=== PATIENT | male | born 2000 | race Caucasian/White ===

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

== ENCOUNTER → 2019-01-22 | Outpatient (REF) | payer BC ==
[~2019-01-22] MED LIST changes: +NITR-67 PO
[2019-01-22 17:00] LABS: APPEARANCE, URINE CLOUDY (CLEAR); BACTERIA, URINE AUTO 1+ (NEGATIVE); BILIRUBIN, URINE AUTO NEGATIVE (NEGATIVE); BLOOD, URINE BLOOD NEGATIVE (NEGATIVE); COLOR, URINE YELLOW (YELLOW); GLUCOSE, URINE (UA) AUTO NEGATIVE (NEGATIVE); KETONE, URINE AUTO NEGATIVE (NEGATIVE); LEUKOCYTE ESTERASE, URINE AUTO 3+ (NEGATIVE); NITRITE, URINE AUTO NEGATIVE (NEGATIVE); PROTEIN, URINE AUTO 2+ mg/dL (NEGATIVE); RBC, URINE AUTO 4 /HPF (0-3); SPECIFIC GRAVITY URINE AUTO 1.019 (1.002-1.035); SQUAMOUS EPITHELIAL CELL UR AU 0 /HPF (0-6); TRANSITIONAL EPITHELIAL AUTO <1 /HPF; UROBILINOGEN, URINE AUTO 0.2 mg/dL (0.0-2.0); WBC, URINE AUTO 171 /HPF (0-3)
== END ==
LOC: M LAB REF 15:36
PROVIDERS: ATTEND Pediatrics
DX: R30.0 Dysuria (principal)

== ENCOUNTER → 2022-07-29 | Outpatient (CLI) | payer MEDICAID ==
[~2022-07-29] MED LIST changes: -DULE100A INH; +MOME13HF8 INH; -SULF1TAB72 PO; +SULF400T14 PO
== END ==
LOC: M RAD 14:58
PROVIDERS: ATTEND Student in an Organized Health Care Education/Training Program
DX: N31.9 Neuromuscular dysfunction of bladder, unspecified (principal); Q53 Undescended and ectopic testicle

== ENCOUNTER 2023-03-22 13:37 | Inpatient (IN) | payer MEDICAID ==
[~2023-03-22] VITALS: Ht 160 cm; Wt 50.3 kg
[2023-03-22] MEDS ORDERED: NS 1,000 ML IV ONE (15:10)
[2023-03-22] MEDS ORDERED: PIPERACILLIN/TAZOBACTAM SOD 4.5 GM in D5W MINI-BAG PLUS 50 ML IV ONE (15:45)
[2023-03-22] MEDS ORDERED: IBUPROFEN 600MG TAB PO ONE (15:45)
[2023-03-22 15:57] LABS: HEMATOCRIT 38.8 % (42.0-52.0); HEMOGLOBIN 13.4 g/dl (13.5-17.5); MEAN CORPUSCULAR HEMOGLOBIN 29.5 pg (27.0-33.0); MEAN CORPUSCULAR HGB CONC 34.5 g/dl (32.0-36.5); MEAN CORPUSCULAR VOLUME 85.5 fl (80.0-96.0); PLATELET COUNT, AUTOMATED 285 10^3/uL (150-450); RED BLOOD COUNT 4.54 10^6/uL (4.30-6.10)
[2023-03-22 16:13] LABS: ATYPICAL LYMPH 31 % (0-5); BASOPHILS 2 % (0-1); LYMPHOCYTES 12 % (16-44); MONOCYTES 4 % (0-5); NEUTROPHILS 47 % (28-66); PLATELET ESTIMATE NORMAL (NORMAL)
[2023-03-22 16:19] LABS: ALBUMIN 3.4 G/DL (3.2-5.2); BILIRUBIN,DIRECT 0.4 MG/DL (<0.4); CALCIUM LEVEL 8.1 MG/DL (8.5-10.1); CREATININE FOR GFR 1.91 MG/DL (0.70-1.30); GLOMERULAR FILTRATION RATE 46.7 (>60); POTASSIUM SERUM 3.6 MMOL/L (3.5-5.1)
[2023-03-22] MEDS ORDERED: ACETAMINOPHEN TAB 650MG DOSE (2X325MG) PO ONE (16:40)
[2023-03-22] MEDS ORDERED: MED REC IN PROGRESS XX SCH (18:10)
[2023-03-22] MEDS ORDERED: VENTAER INH (20:00)
[2023-03-22] MEDS ORDERED: HOME MED LIST COMPLETE! XX SCH (20:05)
[2023-03-22 21:00] VITALS: TEMP 98.5
[2023-03-22 21:05] VITALS: BP 106/66; TEMP 98.3; O2SAT 98
[2023-03-22] MEDS: NS 1,000 ML IV SCH (21:52)
[2023-03-22] MEDS: PIPERACILLIN/TAZOBACTAM SOD 3.375 GM in D5W MINI-BAG PLUS 50 ML IV SCH (21:52)
[2023-03-22] MEDS: ACETAMINOPHEN TAB 650MG DOSE (2X325MG) PO PRN (21:53)
[2023-03-22] MEDS ORDERED: ALBUTEROL SULFATE 2.5MG/0.5ML INH NEB SOLN NEB PRN (21:55)
[2023-03-22] MEDS ORDERED: ONDANSETRON 4MG 2ML VIAL IV PRN (22:15)
[2023-03-22] MEDS: SYMBICORT 160/4.5MCG INHALER 6GM INH SCH (22:26)
[2023-03-22 22:44] LABS: C REACTIVE PROTEIN QUANTITATIV 11.3 MG/DL (<1.0)
[2023-03-22 22:57] LABS: PROCALCITONIN 5.61 ng/ml
[2023-03-22] MEDS ORDERED: METOCLOPRAMIDE INJ 10MG/2ML VIAL IV PRN (23:00)
[2023-03-23] VITALS (9 sets, daily range): BP systolic 98–111; BP diastolic 56–65; TEMP 97–102.8; O2SAT 95–97
[2023-03-23] MEDS: ACETAMINOPHEN TAB 650MG DOSE (2X325MG) PO PRN ×2 (03:33→16:40)
[2023-03-23] MEDS: PIPERACILLIN/TAZOBACTAM SOD 3.375 GM in D5W MINI-BAG PLUS 50 ML IV SCH ×4 (03:34→22:27)
[2023-03-23 07:55] LABS: HEMATOCRIT 34.4 % (42.0-52.0); MEAN CORPUSCULAR HEMOGLOBIN 29.7 pg (27.0-33.0); MEAN CORPUSCULAR HGB CONC 34.9 g/dl (32.0-36.5); MEAN CORPUSCULAR VOLUME 85.1 fl (80.0-96.0); PLATELET COUNT, AUTOMATED 255 10^3/uL (150-450); RED BLOOD COUNT 4.04 10^6/uL (4.30-6.10); WHITE BLOOD COUNT 9.7 10^3/uL (4.0-10.0)
[2023-03-23] MEDS: SYMBICORT 160/4.5MCG INHALER 6GM INH SCH ×2 (08:29→20:12)
[2023-03-23 08:33] LABS: ALBUMIN 2.9 G/DL (3.2-5.2); BILIRUBIN,TOTAL 1.1 MG/DL (0.3-1.2); CALCIUM LEVEL 7.4 MG/DL (8.5-10.1); CREATININE FOR GFR 2.06 MG/DL (0.70-1.30); GLOMERULAR FILTRATION RATE 42.8 (>60); POTASSIUM SERUM 3.5 MMOL/L (3.5-5.1); TOTAL PROTEIN 6.2 G/DL (5.7-8.2)
[2023-03-23 08:46] LABS: ATYPICAL LYMPH 41 % (0-5); LYMPHOCYTES 1 % (16-44); MONOCYTES 10 % (0-5); NEUTROPHILS 48 % (28-66); PLATELET ESTIMATE NORMAL (NORMAL)
[2023-03-23] MEDS: NS 1,000 ML IV SCH ×2 (10:36→20:02)
[2023-03-23] MEDS ORDERED: VANCOMYCIN HCL 1,000 MG, VIAL MATE ADAPTER 1 EACH in D5W 250 ML IV ONE (11:00)
[2023-03-23] MEDS ORDERED: VANCOMYCIN HCL 750 MG, VIAL MATE ADAPTER 1 EACH in D5W 250 ML IV SCH (20:00)
[2023-03-24] VITALS (9 sets, daily range): BP systolic 103–114; BP diastolic 54–60; TEMP 97.6–101.9; O2SAT 95–99
[2023-03-24] MEDS: NS 1,000 ML IV SCH ×2 (02:20→13:01)
[2023-03-24] MEDS: PIPERACILLIN/TAZOBACTAM SOD 3.375 GM in D5W MINI-BAG PLUS 50 ML IV SCH ×2 (04:07→09:38)
[2023-03-24] MEDS: ACETAMINOPHEN TAB 650MG DOSE (2X325MG) PO PRN (04:10)
[2023-03-24 06:13] LABS: HEMATOCRIT 30.7 % (42.0-52.0); HEMOGLOBIN 10.7 g/dl (13.5-17.5); MEAN CORPUSCULAR HEMOGLOBIN 29.9 pg (27.0-33.0); MEAN CORPUSCULAR HGB CONC 34.9 g/dl (32.0-36.5); MEAN CORPUSCULAR VOLUME 85.8 fl (80.0-96.0); PLATELET COUNT, AUTOMATED 245 10^3/uL (150-450); RED BLOOD COUNT 3.58 10^6/uL (4.30-6.10); WHITE BLOOD COUNT 9.6 10^3/uL (4.0-10.0)
[2023-03-24 06:39] LABS: CALCIUM LEVEL 7.7 MG/DL (8.5-10.1); CREATININE FOR GFR 1.73 MG/DL (0.70-1.30); GLOMERULAR FILTRATION RATE 52.4 (>60); POTASSIUM SERUM 3.4 MMOL/L (3.5-5.1)
[2023-03-24 07:05] LABS: ANISOCYTOSIS 1+; ATYPICAL LYMPH 42 % (0-5); BURR CELLS 1+; LYMPHOCYTES 22 % (16-44); MONOCYTES 7 % (0-5); NEUTROPHILS 29 % (28-66); PLATELET ESTIMATE NORMAL (NORMAL); POIKILOCYTOSIS 1+
[2023-03-24 07:06] LABS: POLYCHROMASIA 1+
[2023-03-24] MEDS ORDERED: POTASSIUM CHLORIDE 10MEQ SR TABLET PO ONE (08:00)
[2023-03-24] MEDS: SYMBICORT 160/4.5MCG INHALER 6GM INH SCH ×2 (08:16→20:43)
[2023-03-24] MEDS ORDERED: VANCOMYCIN HCL 1,000 MG, VIAL MATE ADAPTER 1 EACH in D5W 250 ML IV SCH (12:00)
[2023-03-24 13:22] LABS: C REACTIVE PROTEIN QUANTITATIV 9.3 MG/DL (<1.0)
[2023-03-24] MEDS: cefTRIAXone SOD 2 GM in D5W MINI-BAG PLUS 50 ML IV SCH (17:05)
[2023-03-24] MEDS ORDERED: ACETAMINOPHEN 500 MG TAB PO ONE (17:30)
[2023-03-24] MEDS ORDERED: RAMELTEON 8 MG TAB (ROZEREM) PO ONE (20:15)
[2023-03-25] VITALS (7 sets, daily range): BP systolic 97–119; BP diastolic 57–72; TEMP 97.9–101.4; O2SAT 97–98
[2023-03-25] MEDS: NS 1,000 ML IV SCH (04:46)
[2023-03-25 05:25] LABS: HEMATOCRIT 31.8 % (42.0-52.0); HEMOGLOBIN 10.7 g/dl (13.5-17.5); MEAN CORPUSCULAR HEMOGLOBIN 29.5 pg (27.0-33.0); MEAN CORPUSCULAR HGB CONC 33.6 g/dl (32.0-36.5); MEAN CORPUSCULAR VOLUME 87.6 fl (80.0-96.0); PLATELET COUNT, AUTOMATED 264 10^3/uL (150-450); RED BLOOD COUNT 3.63 10^6/uL (4.30-6.10); WHITE BLOOD COUNT 9.4 10^3/uL (4.0-10.0)
[2023-03-25 05:47] LABS: BLOOD UREA NITROGEN 8 MG/DL (9-23); CALCIUM LEVEL 7.6 MG/DL (8.5-10.1); CARBON DIOXIDE LEVEL 21 MMOL/L (20-31); CHLORIDE LEVEL 113 MMOL/L (98-107); CREATININE FOR GFR 1.37 MG/DL (0.70-1.30); GLOMERULAR FILTRATION RATE > 60.0 (>60); GLUCOSE, FASTING 88 MG/DL (60-100); SODIUM LEVEL 141 MMOL/L (136-145)
[2023-03-25 05:51] LABS: ATYPICAL LYMPH 28 % (0-5); EOSINOPHILS 1 % (0-3); LYMPHOCYTES 34 % (16-44); MONOCYTES 6 % (0-5); NEUTROPHILS 31 % (28-66)
[2023-03-25 05:52] LABS: PLATELET ESTIMATE NORMAL (NORMAL); POIKILOCYTOSIS 1+
[2023-03-25 05:59] LABS: PROCALCITONIN 1.73 ng/ml
[2023-03-25] MEDS ORDERED: RAMELTEON 8 MG TAB (ROZEREM) PO PRN (07:30)
[2023-03-25] MEDS: SYMBICORT 160/4.5MCG INHALER 6GM INH SCH ×2 (08:48→20:26)
[2023-03-25] MEDS: cefTRIAXone SOD 2 GM in D5W MINI-BAG PLUS 50 ML IV SCH (16:30)
[2023-03-25] MEDS ORDERED: ACETAMINOPHEN TAB 650MG DOSE (2X325MG) PO ONE (18:50)
[2023-03-26] VITALS (8 sets, daily range): BP systolic 102–119; BP diastolic 56–69; TEMP 98.3–101; O2SAT 98
[2023-03-26] MEDS ORDERED: ACETAMINOPHEN TAB 650MG DOSE (2X325MG) PO ONE (06:00)
[2023-03-26 06:22] LABS: HEMOGLOBIN 11.1 g/dl (13.5-17.5); MEAN CORPUSCULAR HEMOGLOBIN 29.7 pg (27.0-33.0); MEAN CORPUSCULAR HGB CONC 33.6 g/dl (32.0-36.5); MEAN CORPUSCULAR VOLUME 88.2 fl (80.0-96.0); PLATELET COUNT, AUTOMATED 321 10^3/uL (150-450); RED BLOOD COUNT 3.74 10^6/uL (4.30-6.10); WHITE BLOOD COUNT 8.9 10^3/uL (4.0-10.0)
[2023-03-26 06:44] LABS: BLOOD UREA NITROGEN 8 MG/DL (9-23); CARBON DIOXIDE LEVEL 22 MMOL/L (20-31); CHLORIDE LEVEL 112 MMOL/L (98-107); CREATININE FOR GFR 1.32 MG/DL (0.70-1.30); GLOMERULAR FILTRATION RATE > 60.0 (>60); GLUCOSE, FASTING 88 MG/DL (60-100); SODIUM LEVEL 144 MMOL/L (136-145)
[2023-03-26 07:37] LABS: ATYPICAL LYMPH 59 % (0-5); EOSINOPHILS 1 % (0-3); LYMPHOCYTES 3 % (16-44); MONOCYTES 9 % (0-5); NEUTROPHILS 28 % (28-66); PLATELET ESTIMATE NORMAL (NORMAL)
[2023-03-26] MEDS: SYMBICORT 160/4.5MCG INHALER 6GM INH SCH ×2 (09:04→21:04)
[2023-03-26] MEDS: cefTRIAXone SOD 2 GM in D5W MINI-BAG PLUS 50 ML IV SCH (16:04)
[2023-03-27 06:00] VITALS: BP 117/68; TEMP 97.3; O2SAT 95
[2023-03-27 06:50] LABS: HEMATOCRIT 34.5 % (42.0-52.0); HEMOGLOBIN 11.7 g/dl (13.5-17.5); MEAN CORPUSCULAR HEMOGLOBIN 29.9 pg (27.0-33.0); MEAN CORPUSCULAR HGB CONC 33.9 g/dl (32.0-36.5); MEAN CORPUSCULAR VOLUME 88.2 fl (80.0-96.0); PLATELET COUNT, AUTOMATED 337 10^3/uL (150-450); RED BLOOD COUNT 3.91 10^6/uL (4.30-6.10); WHITE BLOOD COUNT 6.9 10^3/uL (4.0-10.0)
[2023-03-27 07:20] LABS: BLOOD UREA NITROGEN 8 MG/DL (9-23); CALCIUM LEVEL 8.2 MG/DL (8.5-10.1); CARBON DIOXIDE LEVEL 23 MMOL/L (20-31); CHLORIDE LEVEL 110 MMOL/L (98-107); CREATININE FOR GFR 1.28 MG/DL (0.70-1.30); GLOMERULAR FILTRATION RATE > 60.0 (>60); GLUCOSE, FASTING 87 MG/DL (60-100); POTASSIUM SERUM 4.2 MMOL/L (3.5-5.1); SODIUM LEVEL 141 MMOL/L (136-145)
[2023-03-27 07:30] LABS: PROCALCITONIN 0.48 ng/ml
[2023-03-27 08:03] LABS: ATYPICAL LYMPH 53 % (0-5); EOSINOPHILS 1 % (0-3); LYMPHOCYTES 17 % (16-44); MONOCYTES 5 % (0-5); NEUTROPHILS 24 % (28-66); PLATELET ESTIMATE NORMAL (NORMAL)
[2023-03-27] MEDS: SYMBICORT 160/4.5MCG INHALER 6GM INH SCH ×2 (08:42→20:47)
[2023-03-27 14:00] VITALS: BP 112/63; TEMP 98.4; O2SAT 96
[2023-03-27] MEDS: cefTRIAXone SOD 2 GM in D5W MINI-BAG PLUS 50 ML IV SCH (17:09)
[2023-03-27 19:40] VITALS: BP 112/63; TEMP 98.6; O2SAT 97
[2023-03-28 05:30] VITALS: BP 113/64; TEMP 97.9; O2SAT 98
[2023-03-28 06:18] LABS: HEMATOCRIT 35.2 % (42.0-52.0); HEMOGLOBIN 11.5 g/dl (13.5-17.5); MEAN CORPUSCULAR HEMOGLOBIN 29.3 pg (27.0-33.0); MEAN CORPUSCULAR HGB CONC 32.7 g/dl (32.0-36.5); MEAN CORPUSCULAR VOLUME 89.8 fl (80.0-96.0); PLATELET COUNT, AUTOMATED 348 10^3/uL (150-450); RED BLOOD COUNT 3.92 10^6/uL (4.30-6.10); WHITE BLOOD COUNT 7.4 10^3/uL (4.0-10.0)
[2023-03-28 07:00] LABS: BLOOD UREA NITROGEN 8 MG/DL (9-23); CALCIUM LEVEL 8.6 MG/DL (8.5-10.1); CARBON DIOXIDE LEVEL 24 MMOL/L (20-31); CHLORIDE LEVEL 110 MMOL/L (98-107); CREATININE FOR GFR 1.29 MG/DL (0.70-1.30); GLOMERULAR FILTRATION RATE > 60.0 (>60); GLUCOSE, FASTING 85 MG/DL (60-100); POTASSIUM SERUM 4.7 MMOL/L (3.5-5.1); SODIUM LEVEL 142 MMOL/L (136-145)
[2023-03-28 07:23] LABS: ATYPICAL LYMPH 49 % (0-5); EOSINOPHILS 3 % (0-3); LYMPHOCYTES 19 % (16-44); METAMYELOCYTES 1 % (0-0); MONOCYTES 3 % (0-5); NEUTROPHILS 25 % (28-66); PLATELET ESTIMATE NORMAL (NORMAL)
[2023-03-28] MEDS: SYMBICORT 160/4.5MCG INHALER 6GM INH SCH (08:47)
[2023-03-28] MEDS ORDERED: cefTRIAXone SOD 2 GM in D5W MINI-BAG PLUS 50 ML IV SCH (13:00)
== END 2023-03-28 13:40 | disposition home or self-care (01) | DRG 720 ==
LOC: M ED 13:37 → M ED INP 18:02 → M PCU 21:02 → M MS5PR 03-25 09:57
PROVIDERS: ADMIT Internal Medicine Nephrology; ATTEND Internal Medicine Nephrology
DX: A41.9 Sepsis, unspecified organism (principal); Q79.4 Prune belly syndrome; A04.8 Other specified bacterial intestinal infections; N17.9 Acute kidney failure, unspecified; N13.30 Unspecified hydronephrosis; R16.1 Splenomegaly, not elsewhere classified; N18.30 Chronic kidney disease, stage 3 unspecified; E86.0 Dehydration; N39.0 Urinary tract infection, site not specified; R26.89 Other abnormalities of gait and mobility; J45.909 Unspecified asthma, uncomplicated; F70 Mild intellectual disabilities; L20.9 Atopic dermatitis, unspecified; Q67.6 Pectus excavatum; Z91.040 Latex allergy status; Z88.8 Allergy status to other drugs, medicaments and biological substances

== ENCOUNTER 2024-08-25 12:12 | Emergency (ER) | payer MEDICAID ==
[~2024-08-25] VITALS: Ht 160 cm; Wt 51.6 kg
[~2024-08-25 12:12] MED LIST changes: +BUDE90AE INH; -PULM90IN INH; +VENTAER INH
[2024-08-25 13:23] LABS: KETONE, URINE AUTO RFX NEGATIVE (NEGATIVE); NITRITE, URINE AUTO RFX NEGATIVE (NEGATIVE); RBC, URINE AUTO RFX 10 /HPF (0-3); SQUAM EPITHELIAL CELL UR AURFX 0 /HPF (0-6)
[2024-08-25 13:24] LABS: LEUKOCYTE ESTERASE UR AUTO RFX 3+ (NEGATIVE); WBC, URINE AUTO RFX TNTC /HPF (0-3)
[2024-08-25 15:06] VITALS: TEMP 99.6; O2SAT 97
[2024-08-25] MEDS: cefTRIAXone SOD 1 GM in DEXTROSE 5% (D5W) ADV/MINI-BAG 50 ML IV ONE (15:19)
[2024-08-25 15:23] VITALS: BP 124/76
[2024-08-25 15:26] LABS: BASO # 0.1 10^3/uL (0.0-0.2); BASO % 0.5 % (0.0-1.0); EOS # 0.1 10^3/uL (0.0-0.5); EOS % 0.9 % (0.0-3.0); HEMATOCRIT 39.9 % (42.0-52.0); HEMOGLOBIN 13.2 g/dl (13.5-17.5); LYMPH # 1.9 10^3/uL (1.5-5.0); LYMPH % 17.5 % (24.0-44.0); MEAN CORPUSCULAR HEMOGLOBIN 30.2 pg (27.0-33.0); MEAN CORPUSCULAR HGB CONC 33.1 g/dl (32.0-36.5); MEAN CORPUSCULAR VOLUME 91.3 fl (80.0-96.0); MONO # 1.6 10^3/uL (0.0-0.8); MONO % 14.8 % (2.0-8.0); NEUTROPHILS # 7.2 10^3/uL (1.5-8.5); NEUTROPHILS % 65.9 % (36.0-66.0); PLATELET COUNT, AUTOMATED 317 10^3/uL (150-450); RED BLOOD COUNT 4.37 10^6/uL (4.30-6.10)
[2024-08-25 15:56] LABS: CALCIUM LEVEL 8.5 MG/DL (8.5-10.1); CREATININE FOR GFR 1.8 MG/DL (0.70-1.30); GLOMERULAR FILTRATION RATE 52.9 (>60)
[2024-08-25] MEDS ORDERED: CIPR500T39 PO (16:02)
== END 2024-08-25 16:11 | disposition home or self-care (01) ==
LOC: M ED 12:12
DX: N39.0 Urinary tract infection, site not specified (principal); J45.909 Unspecified asthma, uncomplicated; Z87.442 Personal history of urinary calculi; Z88.8 Allergy status to other drugs, medicaments and biological substances; Z91.040 Latex allergy status; Z91.048 Other nonmedicinal substance allergy status; Z79.52 Long term (current) use of systemic steroids; Z79.2 Long term (current) use of antibiotics; Z79.899 Other long term (current) drug therapy
CPT/HCPCS: 80048; 81001; 85025; 87040; 87088; 87186; 87486; 87581; 87633; 87798; 96365; 99284; J0696